=== PATIENT | female | born 1970 | race Caucasian/White ===

== ENCOUNTER → 2020-12-24 | Outpatient (CLI) | payer OTHER ==
--- NOTE | 2020-12-24 17:49 | RAD ---
DATE: 12/24/2020 EXAM: DIGITAL SCREEN BILAT W/CAD HISTORY: Screening COMPARISON: 09/09/2015 This study was interpreted with the benefit of Computerized Aided Detection (CAD). Breast Density: SCATTERED The breast parenchyma shows scattered fibroglandular densities. Breast parenchyma level B. FINDINGS: No mass, suspicious calcification, or architectural distortion in either breast. IMPRESSION: No evidence of malignancy. BI-RADS CATEGORY: 1 NEGATIVE RECOMMENDED FOLLOW-UP: 12M 12 MONTH FOLLOW-UP PQRS compliance statement: Patient information was entered into a reminder system with a target due date for the next mammogram. Mammography is a sensitive method for finding small breast cancers, but it does not detect them all and is not a substitute for careful clinical examination. A negative mammogram does not negate a clinically suspicious finding and should not result in delay in biopsying a clinically suspicious abnormality. "Our facility is accredited by the [employer] Mammography [employer]."
== END ==
LOC: MAMMO 11:15
PROVIDERS: ATTEND Nurse Practitioner Family
DX: Z12.31 Encounter for screening mammogram for malignant neoplasm of breast (principal)
CPT/HCPCS: 77067

== ENCOUNTER 2021-06-07 13:40 | Emergency (ER) | payer SELFPAY ==
[~2021-06-07] VITALS: Ht 167.6 cm; Wt 77.4 kg
[2021-06-07 13:40] VITALS: BP 135/75
--- NOTE | 2021-06-07 14:06 | PHYS DOC ---
Past History Past Medical History: No Pertinent History Past Surgical History: No Surgical History General Adult EDM: Chief Complaint: SHORTNESS OF BREATH HPI: HPI: 3-year-old female presents to the emergency department complaining of diarrhea, shortness of breath, body aches for the last 4 days along with night sweats at home. She reports that she is unvaccinated for COVID-19 and was recently exposed to somebody with Covid. She is worried that she has Covid and feels very anxious regarding the diagnosis. She admits to some fatigue as well. The patient denies nausea, vomiting, fever, chills, chest pain, abdominal pain, re cent trauma, or any other complaints. Review of Systems: Review of Systems: ROS is otherwise negative except for what was mentioned in the HPI Family History: Family History: non contributory Allergies: Allergies: Allergies Coded Allergies Type Severity Reaction Last Updated Verified codeine Allergy Unknown 06/07/21 Yes propoxyphene Allergy Unknown 06/07/21 Yes Physical Exam: PE: Constitutional: Moderate distress, anxious, tearful. HENT: Atraumatic, bilateral external ears normal, nose normal. Eyes: PERRLA, EOMI, conjunctiva normal, no discharge. Neck: Normal range of motion, supple, no stridor. Cardiovascular: Heart rate regular rhythm. 2+ radial pulses Lungs & Thorax: No respiratory distress, symmetrical expansion. Bilateral breath sounds clear to auscultation Abdomen: Soft, no tenderness Skin: Warm, dry. Extremities: No tenderness, no cyanosis, ROM intact, no edema. Neurologic: Alert and oriented X 3, normal motor function, normal sensory function, no focal deficits noted. Non ataxic gait. GCS 15. Psychologic: Very anxious, judgment normal EKG: EKG: [] Radiology/Procedures: Radiology/Procedures: PROCEDURE: CHEST AP ONLY Single view of the chest. 06/07/2021 2:15 PM Indication: Reason: shortness of breath Comparison: None Findings: There is mild right basilar infiltrate or atelectasis. No pneumothorax or pleural effusion is seen. Heart size is normal. Bony thorax is intact. IMPRESSION: Mild right basilar atelectasis or infiltrate. Consider follow-up two-view chest radiograph Electronically signed by: Luke Arnold MD (06/07/2021 2:35 PM) Heart Score: C/O Chest Pain: No Course & Med Decision Making: Course & Med Decision Making Covid test was obtained and pending, chest x-ray suggestive of a mild pneumonia in the right lower lobe, she was placed on azithromycin for 5 days and is otherwise stable for discharge. She was advised to quarantine until Covid results return Departure Departure: Impression: Primary Impression: Pneumonia Disposition: HOME / SELF CARE / HOMELESS Condition: STABLE Referrals: MARIANNE REES (PCP) Patient Instructions: Pneumonia, Adult, [id number] Additional Instructions: You were seen in the emergency department for a pneumonia. You should return to the ED if you develop worsening cough, shortness of breath, chest pain, or any other new or concerning symptoms. Your cough may persist for a few weeks but your other symptoms should gradually improve. You should make sure to drink plenty of fluids at home. You have been given a prescription for azithromycin. This medicine is an antibiotic for pneumonia. Please take as prescribed for the full course of the prescription. Do not stop taking the medicine early if you feel better, as this could risk building antibiotic resistance and may put you at risk for a more harmful infection later. The most common side effect of antibiotics include nausea, vomiting, diarrhea and rash. Please come to be evaluated if you develop any symptoms that are concerning to you. One major adverse effect of antibiotics is the development of a diarrheal illness called c. diff colitis, if you develop an excessive amount of diarrhea or are concerned about this please return to the ER or consult a physician. Scripts Azithromycin (AZITHROMYCIN TABLET) 250 Mg Tablet 1 PKG PO UD for pneumonia for 5 Days, #6 TAB 0 Refills 2 the first day followed by 1 for days 2-5 Prov: BEAR GIBBS DO 06/07/21 BEAR GIBBS DO Jun 07, 2021 14:06
--- NOTE | 2021-06-07 14:38 | RAD ---
Single view of the chest. 06/07/2021 2:15 PM Indication: Reason: shortness of breath Comparison: None Findings: There is mild right basilar infiltrate or atelectasis. No pneumothorax or pleural effusion is seen. Heart size is normal. Bony thorax is intact. IMPRESSION: Mild right basilar atelectasis or infiltrate. Consider follow-up two-view chest radiograp h Electronically signed by: Lkue Arnold MD (06/07/2021 2:35 PM) [id number]
[2021-06-07] MEDS ORDERED: AZIT250T6 PO (14:45)
== END 2021-06-07 14:50 | disposition home or self-care (01) ==
LOC: ER 13:40
DX: U07.1 COVID-19 (principal); J18.9 Pneumonia, unspecified organism; Z88.5 Allergy status to narcotic agent; Z88.8 Allergy status to other drugs, medicaments and biological substances
CPT/HCPCS: 71045; 99284; C9803; U0003